=== PATIENT | female | born 1980 | race Caucasian/White ===

== ENCOUNTER 2022-08-01 10:23 | Day surgery (SDC) | payer SELFPAY ==
[2022-07-28 13:31] VITALS: BMI 38.2
[2022-08-01] MEDS ORDERED: ROCURONIUM BROMIDE 50 MG/5 ML SYRINGE ONE (10:43)
[2022-08-01] MEDS ORDERED: MIDAZOLAM HCL 2 MG/2 ML SINGLE DOSE VIAL ONE (10:43)
[2022-08-01] MEDS ORDERED: PROPOFOL 20 ML ONE ×4 (10:43→17:30)
[2022-08-01] MEDS ORDERED: LIDOCAINE 1%-EPI 1:100,000 30 ML MDV IJ ONE (13:31)
[2022-08-01] MEDS ORDERED: OXYMETAZOLINE 0.05% NASAL SOLUTION 15 ML BOTTLE NS ONE (13:31)
[2022-08-01] MEDS ORDERED: DEXAMETHASONE SOD PHOSPHATE 4 MG/1 ML VIAL ONE ×2 (14:10)
[2022-08-01] MEDS ORDERED: ONDANSETRON 4 MG/2 ML VIAL ONE ×2 (14:10)
[2022-08-01] MEDS ORDERED: NEOSTIGMINE METHYLSULFATE 0.5 MG/1 ML - 10 ML MDV ONE (17:11)
[2022-08-01] MEDS ORDERED: BUPIVACAINE HCL/PF 0.5% (5MG/ML) 10 ML VIAL ONE (17:24)
[2022-08-01] MEDS ORDERED: BACITRACIN ZINC 15 GM TUBE TOPICAL OINTMENT ONE (17:36)
[2022-08-01] MEDS ORDERED: oxyCODONE HCL 5 MG TABLET PO PRN ×3 (18:02→18:08)
[2022-08-01] MEDS ORDERED: PROMETHAZINE HCL 25 MG/1 ML VIAL IVPB PRN (18:02)
[2022-08-01] MEDS ORDERED: ACETAMINOPHEN 1000 MG/100 ML BAG IVPB ONE (18:03)
[2022-08-01] MEDS ORDERED: ONDANSETRON 4 MG/2 ML VIAL IVPB PRN (18:08)
[2022-08-01] MEDS ORDERED: ACETAMINOPHEN INJECTION 100 ML IVPB ONE (18:11)
[2022-08-01] MEDS ORDERED: LACTATED RINGERS SOLUTION 1,000 ML IV SCH ×2 (18:15)
[2022-08-01 19:04] VITALS: RESP 16
[2022-08-01 19:18] VITALS: BP 112/78; PULSE 79; TEMP 97.5
== END 2022-08-01 19:30 | disposition home or self-care (01) ==
LOC: FASU 10:23
PROVIDERS: ATTEND Plastic Surgery
CPT/HCPCS: 81025; 94760